=== PATIENT | female | born 1965 | race Caucasian/White ===

== ENCOUNTER 2019-01-30 08:52 | Outpatient (CLI) | payer OTHER ==
[~2019-01-30 08:52] MED LIST: IBUP-2213 PO
[2019-01-30 09:30] LABS: EOSINOPHILS # (AUTO) 0.2 K/uL (0-0.4); EOSINOPHILS % (AUTO) 3.3 % (0.0-4.0); HEMATOCRIT 40.2 % (36-48); HEMOGLOBIN 13.5 g/dL (12.0-16.0); LYMPHOCYTES # (AUTO) 1.8 K/uL (2.5-16.5); LYMPHOCYTES % (AUTO) 34.4 % (20.5-51.1); MEAN CORPUSCULAR HEMOGLOBIN 30 pg (27-31); MEAN CORPUSCULAR HGB CONC 34 g/dL (33-37); MEAN CORPUSCULAR VOLUME 88.7 fL (80-94); MONOCYTES # (AUTO) 1.9 K/uL (0.8-1.0); MONOCYTES % (AUTO) 36.1 % (1.7-9.3); NEUTROPHILS # (AUTO) 1.4 K/uL (1.8-7.7); NEUTROPHILS % (AUTO) 26.2 % (42.2-75.2); PLATELET COUNT (AUTO) 291 K/uL (140-450); RED BLOOD CELL COUNT(AUTO) 4.54 MIL/uL (4.20-5.40); RED CELL DISTRIBUTION WIDTH 13.6 % (11.6-13.7); WHITE BLOOD COUNT (AUTO) 5.3 K/uL (4.8-10.8)
[2019-01-30 10:04] LABS: ALBUMIN 3.7 g/dL (3.4-5.0); ANION GAP 11.8 (8-16); CARBON DIOXIDE 29.6 mmol/L (21-32); CHOL/HDL RATIO 3.4 (1-4.5); CREATININE 0.8 mg/dL (0.6-1.3); POTASSIUM 4.4 mmol/L (3.5-5.1); THYROID STIMULATING HORMONE 1.77 uIU/mL (0.34-3.74); TOTAL BILIRUBIN 0.3 mg/dL (0.0-1.0)
== END 2019-01-30 20:38 | disposition home or self-care (01) ==
LOC: MLB 08:52
PROVIDERS: ATTEND Internal Medicine Geriatric Medicine
DX: Z76.89 Persons encountering health services in other specified circumstances (principal)
CPT/HCPCS: 36415; 80053; 82306; 84443; 85025

== ENCOUNTER 2019-12-18 12:45 | Emergency (ER) | payer OTHER ==
[~2019-12-18] VITALS: Ht 165.1 cm; Wt 81.2 kg
--- NOTE | 2019-12-18 12:46 | NUR ---
PT TO ER BED 3
[2019-12-18 12:52] VITALS: BP 125/78
--- NOTE | 2019-12-18 13:13 | NUR ---
PT BIB C/O L FOOT PAIN X2 WEEKS. DENIES TRAUMA. PT DENIES N/V/D; SKIN IS INTACT, PINK/WARM/DRY; AAOX4, PERRL, WITH EVEN AND STEADY GAIT; LUNGS CLEAR BL, BREATHING UNLABORED; HR EVEN AND REGULAR, BL PERIPHERAL PULSES PRESENT; BS ACTIVE X4, NO TENDERNESS TO PALPATION. PT DENIES ANY FEVER, CP, SOB, OR COUGH AT THIS TIME; PT STATES 0/10 PAIN AT THIS TIME; VSS; PATIENT POSITIONED FOR COMFORT; HOB ELEVATED; BEDRAILS UP X2; BED DOWN. Addendum: 12/18/19 at 1320 by MEDRJJ PAIN 03/16
--- NOTE | 2019-12-18 13:25 | NUR ---
ILANA PILLAI EVALUATING PT AT BEDSIDE
[2019-12-18] MEDS: KETOROLAC 30 MG/ML VIAL IM ONE (13:36)
--- NOTE | 2019-12-18 13:40 | NUR ---
Patient discharged with v/s stable. Written and verbal after care instructions given and explained. Patient alert, oriented and verbalized understanding of instructions. Ambulatory with steady gait. All questions addressed prior to discharge. ID band removed. Patient advised to follow up with PMD. Rx of prednisone and acetaminophen given. Patient educated on indication of medication including possible reaction and side effects. Opportunity to ask questions provided and answered.
[2019-12-18 13:41] VITALS: BP 125/78
== END 2019-12-18 13:40 | disposition home or self-care (01) ==
LOC: MED 12:45
DX: M72.2 Plantar fascial fibromatosis (principal); E07.9 Disorder of thyroid, unspecified; Z79.899 Other long term (current) drug therapy; Z88.0 Allergy status to penicillin
CPT/HCPCS: 96372; 99283; J1885

== ENCOUNTER 2020-02-05 09:36 | Emergency (ER) | payer OTHER ==
[~2020-02-05] VITALS: Ht 165.1 cm; Wt 79.4 kg
[2020-02-05 09:43] VITALS: BP 131/96
[2020-02-05] MEDS: NACL 0.9% 1,000 ML IV ONE ×2 (10:14→12:52)
[2020-02-05] MEDS: diphenhydrAMINE 50 MG/ML VIAL IVP ONE (10:19)
[2020-02-05] MEDS: METOCLOPRAMIDE 10 MG/2 ML INJ VIAL IVP ONE (10:33)
[2020-02-05] MEDS: KETOROLAC 15 MG/ML VIAL IVP ONE (12:52)
[2020-02-05 14:23] VITALS: BP 130/89
== END 2020-02-05 14:24 | disposition home or self-care (01) ==
LOC: MED 09:36
DX: G43.909 Migraine, unspecified, not intractable, without status migrainosus (principal); E06.3 Autoimmune thyroiditis; Z88.0 Allergy status to penicillin; Z79.899 Other long term (current) drug therapy
CPT/HCPCS: 96374; 96375; 99284; J1200; J1885; J2765; J7030